=== PATIENT | male | born 1955 | race Caucasian/White ===

== ENCOUNTER 2016-10-14 00:32 | Inpatient (IN) | payer OTHER ==
[~2016-10-14] VITALS: Ht 172.7 cm; Wt 42.5 kg
[~2016-10-14 00:32] MED LIST: ACET325T21 PO; CALC200T10 PO; ENOX40SY4 SQ; HYDR-3240 PO; LEVE500T53 PO; PHEN100C PO
[2016-10-14] MEDS ORDERED: SODIUM CHLORIDE FLUSH 10ML SYR IVF ONE (01:00)
[2016-10-14] MEDS ORDERED: SODIUM CHLORIDE 0.9% 1,000ML IVBOLUS ONE (01:00)
[2016-10-14] MEDS ORDERED: VANCOMYCIN PER PHARMACY MC ONE (01:30)
[2016-10-14] MEDS ORDERED: ACETAMINOPHEN 650 MG SUPP PR ONE (01:30)
[2016-10-14] MEDS ORDERED: PIPERACILLIN/TAZO/PMX 4.5GM 100 ML IVPB ONE (01:30)
[2016-10-14] MEDS ORDERED: VANCOMYCIN PMX 1GM/200ML 200 ML IV ONE (01:30)
[2016-10-14] MEDS ORDERED: ACETAMINOPHEN 325 MG SUPP ONE ×2 (01:33→01:37)
[2016-10-14 01:41] LABS: ASPARTATE AMINO TRANSFERASE 61 U/L (15-37); BLOOD UREA NITROGEN 53 mg/dL (7-18)
[2016-10-14 01:49] LABS: IS PT STATUS REG ER OR PRE ER? YES
[2016-10-14 01:59] LABS: DAU SCREEN DISCLAIMER
[2016-10-14] MEDS ORDERED: LISI-167 PO (02:23)
[2016-10-14] MEDS ORDERED: RANI150T4 PO (02:23)
[2016-10-14] MEDS ORDERED: ASPI-496 PO (02:23)
[2016-10-14] MEDS ORDERED: CARV-39 PO (02:23)
[2016-10-14] MEDS ORDERED: CHOL100018 PO (02:23)
[2016-10-14] MEDS ORDERED: HEPARIN 25,000 UNITS/500ML PMX 500 ML ONE (03:28)
[2016-10-14] MEDS ORDERED: HEPARIN 5,000 UNITS/ML, 1ML ONE (03:28)
[2016-10-14] MEDS ORDERED: HEPARIN 5,000 UNITS/ML, 1ML IV PRN (03:30)
[2016-10-14] MEDS ORDERED: SODIUM CHLORIDE 0.9% 1,000 ML IV ONE (03:30)
[2016-10-14] MEDS ORDERED: HEPARIN 25,000 UNITS/500ML PMX 500 ML IV PRN (03:30)
[2016-10-14] MEDS ORDERED: HEPARIN 5,000 UNITS/ML, 1ML IV ONE (03:30)
[2016-10-14] MEDS ORDERED: MORPHINE SULFATE 4 MG/ML, 1ML ONE (04:15)
[2016-10-14] MEDS ORDERED: ONDANSETRON 2MG/ML, 2ML ONE (04:15)
[2016-10-14] MEDS: MORPHINE SULFATE 4 MG/ML, 1ML IVPush PRN ×2 (04:17→10:51)
[2016-10-14] MEDS ORDERED: ONDANSETRON 2MG/ML, 2ML IVPush ONE (04:30)
[2016-10-14 08:52] VITALS: BP 128/82
[2016-10-14] MEDS ORDERED: CYAN200014 PO (09:14)
[2016-10-14] MEDS ORDERED: ASPI325T80 PO (09:14)
[2016-10-14] MEDS ORDERED: CA C1TAB62 PO (09:14)
[2016-10-14] MEDS ORDERED: POLYETHYLENE GLYCOL 17 GM PACKET PO PRN (12:30)
[2016-10-14] MEDS ORDERED: hydrALAzine 20 MG/ML, 1ML IVPush PRN (12:30)
[2016-10-14] MEDS ORDERED: DOCUSATE 100 MG CAPSULE PO PRN (12:30)
[2016-10-14] MEDS ORDERED: ONDANSETRON 2MG/ML, 2ML IVPush PRN (12:30)
[2016-10-14] MEDS: CHOLECALCIFEROL 1,000 UNIT TABLET PO SCH (12:30)
[2016-10-14] MEDS ORDERED: BISACODYL 10 MG SUPP PR PRN (12:30)
[2016-10-14] MEDS: HEPARIN 5,000 UNITS/ML, 1ML SQ SCH ×2 (12:30→20:37)
[2016-10-14] MEDS ORDERED: ACETAMINOPHEN 325 MG TABLET PO PRN (12:30)
[2016-10-14] MEDS ORDERED: LABETALOL 5MG/ML, 20ML IVPush PRN (12:30)
[2016-10-14] MEDS ORDERED: POTASSIUM CHLORIDE 40 MEQ in SODIUM CHLORIDE 0.9% 500 ML IV ONE (13:00)
[2016-10-14 13:21] VITALS: BP 113/67
[2016-10-14] MEDS: FLUTICASONE/VILANTEROL 100-25MCG/INH INH SCH (13:39)
[2016-10-14 14:19] LABS: BLOOD UREA NITROGEN 36 mg/dL (7-18)
[2016-10-14] MEDS ORDERED: METOPROLOL 1 MG/ML, 5ML IVPush PRN (16:30)
[2016-10-14] MEDS: LEVETIRACETAM 500 MG in SODIUM CHLORIDE 0.9% 100 ML IV SCH (17:18)
[2016-10-14 17:51] VITALS: BP 123/84
[2016-10-14] MEDS: morphine SULFATE 10 MG/ML, 1ML IVPush PRN (17:58)
[2016-10-14 18:18] LABS: IS PT STATUS REG ER OR PRE ER? NO
[2016-10-14] MEDS: D5%-0.45% NACL 1,000 ML IV SCH (18:27)
[2016-10-14 18:29] VITALS: BP 121/76
[2016-10-14 20:30] VITALS: BP 113/77
[2016-10-14] MEDS ORDERED: LEVETIRACETAM 500 MG TABLET PO SCH (21:00)
[2016-10-14] MEDS ORDERED: FAMOTIDINE 20 MG TABLET PO SCH (21:00)
[2016-10-14] MEDS ORDERED: CARVEDILOL 25 MG TABLET PO SCH (21:00)
[2016-10-14 22:54] LABS: IS PT STATUS REG ER OR PRE ER? NO
[2016-10-15 02:00] VITALS: BP 117/71
[2016-10-15] MEDS: D5%-0.45% NACL 1,000 ML IV SCH (03:21)
[2016-10-15] MEDS: HEPARIN 5,000 UNITS/ML, 1ML SQ SCH ×3 (04:27→20:45)
[2016-10-15] MEDS: LEVETIRACETAM 500 MG in SODIUM CHLORIDE 0.9% 100 ML IV SCH ×2 (04:28→17:22)
[2016-10-15 04:47] LABS: BLOOD UREA NITROGEN 23 mg/dL (7-18)
[2016-10-15 04:50] LABS: ASPARTATE AMINO TRANSFERASE 25 U/L (15-37)
[2016-10-15 07:05] VITALS: BP 118/69
[2016-10-15] MEDS: FLUTICASONE/VILANTEROL 100-25MCG/INH INH SCH (07:47)
[2016-10-15] MEDS: CHOLECALCIFEROL 1,000 UNIT TABLET PO SCH (07:49)
[2016-10-15] MEDS ORDERED: VANCOMYCIN PER PHARMACY MC PRN (09:00)
[2016-10-15] MEDS ORDERED: PHARMACOKINETIC MONITORING MC PRN (09:30)
[2016-10-15] MEDS: PIPERACILLIN/TAZO/PMX 3.375GM 50 ML IV SCH ×3 (10:49→23:08)
[2016-10-15] MEDS: DEXTROSE 5% 1,000 ML IV SCH ×2 (10:49→23:13)
[2016-10-15] MEDS: VANCOMYCIN PMX 1GM/200ML 200 ML IV SCH (11:42)
[2016-10-15 13:04] VITALS: BP 115/69
[2016-10-15] MEDS ORDERED: DILTIAZEM 5 MG/ML, 5ML ONE (13:08)
[2016-10-15] MEDS ORDERED: DILTIAZEM 5 MG/ML, 5ML IVPush ONE (13:13)
[2016-10-15] MEDS: DILTIAZEM 125 MG in SODIUM CHLORIDE 0.9% 100 ML IV SCH ×2 (13:40→23:17)
[2016-10-15] MEDS ORDERED: ASPIRIN 325 MG TABLET EC PO SCH (14:30)
[2016-10-15] MEDS ORDERED: DIGOXIN 0.25 MG/ML, 2ML IVPush ONE (15:00)
[2016-10-15 15:58] LABS: BLOOD UREA NITROGEN 19 mg/dL (7-18)
[2016-10-15 20:33] VITALS: BP 102/65
[2016-10-15 21:50] LABS: BLOOD UREA NITROGEN 24 mg/dL (7-18)
[2016-10-16 02:18] VITALS: BP 99/64
[2016-10-16] MEDS: PIPERACILLIN/TAZO/PMX 3.375GM 50 ML IV SCH ×4 (04:34→22:25)
[2016-10-16] MEDS: HEPARIN 5,000 UNITS/ML, 1ML SQ SCH ×3 (04:36→19:54)
[2016-10-16] MEDS: LEVETIRACETAM 500 MG in SODIUM CHLORIDE 0.9% 100 ML IV SCH ×2 (05:25→16:58)
[2016-10-16] MEDS: ASPIRIN 325 MG TABLET PO SCH (05:26)
[2016-10-16 05:29] LABS: BLOOD UREA NITROGEN 22 mg/dL (7-18)
[2016-10-16 06:31] VITALS: BP 101/63
[2016-10-16] MEDS ORDERED: POTASSIUM CHLORIDE 10% 40 MEQ/30 ML UDC PO ONE (07:00)
[2016-10-16] MEDS ORDERED: POTASSIUM CHLORIDE 20 MEQ TAB.ER.PRT PO ONE (07:00)
[2016-10-16] MEDS ORDERED: POTASSIUM PHOSPHATE 44 MEQ in SODIUM CHLORIDE 0.9% 500 ML IV ONE (07:00)
[2016-10-16] MEDS: CHOLECALCIFEROL 1,000 UNIT TABLET PO SCH (07:51)
[2016-10-16] MEDS: FLUTICASONE/VILANTEROL 100-25MCG/INH INH SCH (07:52)
[2016-10-16] MEDS: DEXTROSE 5% 1,000 ML IV SCH (07:52)
[2016-10-16 09:25] LABS: BLOOD UREA NITROGEN 19 mg/dL (7-18)
[2016-10-16] MEDS: DIGOXIN 0.25 MG/ML, 2ML IVPush SCH (09:40)
[2016-10-16] MEDS: DILTIAZEM 125 MG in SODIUM CHLORIDE 0.9% 100 ML IV SCH ×2 (09:41→23:47)
[2016-10-16] MEDS: VANCOMYCIN PMX 1GM/200ML 200 ML IV SCH (10:32)
[2016-10-16 12:41] VITALS: BP 107/71
[2016-10-16] MEDS: THIAMINE 200 MG in SODIUM CHLORIDE 0.9% 50 ML IV SCH (13:53)
[2016-10-16 20:00] VITALS: BP 101/64
[2016-10-16] MEDS: OXYcodone IR 5MG TABLET PO PRN (22:29)
[2016-10-17 01:25] VITALS: BP 103/67
[2016-10-17] MEDS: PIPERACILLIN/TAZO/PMX 3.375GM 50 ML IV SCH ×4 (04:22→22:11)
[2016-10-17] MEDS: HEPARIN 5,000 UNITS/ML, 1ML SQ SCH ×3 (04:22→20:11)
[2016-10-17 04:51] LABS: BLOOD UREA NITROGEN 12 mg/dL (7-18)
[2016-10-17] MEDS: LEVETIRACETAM 500 MG in SODIUM CHLORIDE 0.9% 100 ML IV SCH ×2 (05:50→18:24)
[2016-10-17] MEDS: ASPIRIN 325 MG TABLET PO SCH (05:51)
[2016-10-17 07:21] VITALS: BP 103/66
[2016-10-17] MEDS: CHOLECALCIFEROL 1,000 UNIT TABLET PO SCH (08:11)
[2016-10-17] MEDS: DIGOXIN 0.25 MG/ML, 2ML IVPush SCH (08:11)
[2016-10-17] MEDS: OXYcodone IR 5MG TABLET PO PRN (08:11)
[2016-10-17] MEDS: FLUTICASONE/VILANTEROL 100-25MCG/INH INH SCH (08:12)
[2016-10-17] MEDS: THIAMINE 200 MG in SODIUM CHLORIDE 0.9% 50 ML IV SCH (11:28)
[2016-10-17] MEDS: VANCOMYCIN PMX 1GM/200ML 200 ML IV SCH (11:28)
[2016-10-17] MEDS ORDERED: POTASSIUM CHLORIDE 40 MEQ in SODIUM CHLORIDE 0.9% 100 ML IV ONE (11:30)
[2016-10-17] MEDS ORDERED: MAGNESIUM SULFATE PMX 4GM/100M 100 ML IV ONE (11:30)
[2016-10-17] MEDS ORDERED: POTASSIUM CHLORIDE 20 MEQ TAB.ER.PRT NG ONE (13:00)
[2016-10-17] MEDS ORDERED: DILTIAZEM 125 MG in SODIUM CHLORIDE 0.9% 100 ML IV SCH (13:30)
[2016-10-17 14:26] VITALS: BP 102/63
[2016-10-17] MEDS: DILTIAZEM 30 MG TABLET NG SCH ×2 (15:40→22:10)
[2016-10-17] MEDS ORDERED: POTASSIUM PHOSPHATE 44 MEQ in SODIUM CHLORIDE 0.9% 500 ML IV ONE (16:00)
[2016-10-17] MEDS ORDERED: DOCUSATE 100 MG CAPSULE PO PRN (19:30)
[2016-10-17] MEDS ORDERED: ACETAMINOPHEN 325 MG TABLET PO PRN (19:30)
[2016-10-17] MEDS ORDERED: BISACODYL 10 MG SUPP PR PRN (19:30)
[2016-10-17 19:55] VITALS: BP 105/62
[2016-10-17 22:00] VITALS: BP 110/65
[2016-10-18 03:17] VITALS: BP 120/64
[2016-10-18 04:15] VITALS: BP 116/72
[2016-10-18] MEDS: ASPIRIN 325 MG TABLET PO SCH (04:15)
[2016-10-18] MEDS: PIPERACILLIN/TAZO/PMX 3.375GM 50 ML IV SCH ×4 (04:15→22:17)
[2016-10-18] MEDS: DILTIAZEM 30 MG TABLET NG SCH ×4 (04:16→20:44)
[2016-10-18] MEDS: HEPARIN 5,000 UNITS/ML, 1ML SQ SCH ×3 (04:16→20:43)
[2016-10-18] MEDS ORDERED: VANCOMYCIN PMX 1GM/200ML 200 ML IV SCH (05:00)
[2016-10-18] MEDS: LEVETIRACETAM 500 MG in SODIUM CHLORIDE 0.9% 100 ML IV SCH ×2 (06:06→16:45)
[2016-10-18 06:16] LABS: BLOOD UREA NITROGEN 11 mg/dL (7-18)
[2016-10-18] MEDS: FLUTICASONE/VILANTEROL 100-25MCG/INH INH SCH (09:57)
[2016-10-18] MEDS: CHOLECALCIFEROL 1,000 UNIT TABLET PO SCH (09:57)
[2016-10-18] MEDS: DIGOXIN 0.25 MG/ML, 2ML IVPush SCH (09:57)
[2016-10-18 10:11] VITALS: BP 121/78
[2016-10-18] MEDS: THIAMINE 200 MG in SODIUM CHLORIDE 0.9% 50 ML IV SCH (11:42)
[2016-10-18] MEDS: morphine SULFATE 10 MG/ML, 1ML IVPush PRN (12:03)
[2016-10-18 13:46] VITALS: BP 130/66
[2016-10-18] MEDS: LACTOBACILLUS 1GM/ PACKET NG SCH ×2 (16:45→20:44)
[2016-10-18 19:35] VITALS: BP 110/63
[2016-10-18 20:44] VITALS: BP 125/77
[2016-10-19 03:28] VITALS: BP 115/72
[2016-10-19] MEDS: PIPERACILLIN/TAZO/PMX 3.375GM 50 ML IV SCH ×4 (03:29→22:24)
[2016-10-19] MEDS: DILTIAZEM 30 MG TABLET NG SCH ×4 (03:29→22:24)
[2016-10-19] MEDS: LEVETIRACETAM 500 MG in SODIUM CHLORIDE 0.9% 100 ML IV SCH ×2 (04:34→18:19)
[2016-10-19] MEDS: ASPIRIN 325 MG TABLET PO SCH (04:34)
[2016-10-19] MEDS: HEPARIN 5,000 UNITS/ML, 1ML SQ SCH ×3 (04:34→19:50)
[2016-10-19 06:10] LABS: BLOOD UREA NITROGEN 10 mg/dL (7-18)
[2016-10-19 07:04] VITALS: BP 122/75
[2016-10-19] MEDS ORDERED: REGADENOSON 0.4 MG/5 ML SYRINGE ONE (08:49)
[2016-10-19 10:33] VITALS: BP 129/74
[2016-10-19] MEDS: FLUTICASONE/VILANTEROL 100-25MCG/INH INH SCH (10:34)
[2016-10-19] MEDS: CHOLECALCIFEROL 1,000 UNIT TABLET PO SCH (10:35)
[2016-10-19] MEDS: DIGOXIN 0.25 MG/ML, 2ML IVPush SCH (10:35)
[2016-10-19] MEDS: LACTOBACILLUS 1GM/ PACKET NG SCH ×3 (10:35→22:24)
[2016-10-19] MEDS: THIAMINE 200 MG in SODIUM CHLORIDE 0.9% 50 ML IV SCH (12:17)
[2016-10-19] MEDS: OXYcodone IR 5MG TABLET PO PRN ×2 (12:22→13:21)
[2016-10-19 14:14] VITALS: BP 103/70
[2016-10-19 19:46] VITALS: BP 121/71
[2016-10-19 22:23] VITALS: BP 123/70
[2016-10-20 01:04] VITALS: BP 121/71
[2016-10-20] MEDS: OXYcodone IR 5MG TABLET PO PRN ×3 (01:37→18:31)
[2016-10-20] MEDS: HEPARIN 5,000 UNITS/ML, 1ML SQ SCH ×3 (04:19→22:28)
[2016-10-20] MEDS: PIPERACILLIN/TAZO/PMX 3.375GM 50 ML IV SCH ×2 (04:19→09:06)
[2016-10-20 04:20] VITALS: BP 113/72
[2016-10-20] MEDS: ASPIRIN 325 MG TABLET PO SCH (04:20)
[2016-10-20] MEDS: DILTIAZEM 30 MG TABLET NG SCH ×4 (04:20→22:28)
[2016-10-20 05:06] LABS: BLOOD UREA NITROGEN 15 mg/dL (7-18)
[2016-10-20] MEDS: LEVETIRACETAM 500 MG in SODIUM CHLORIDE 0.9% 100 ML IV SCH ×2 (05:43→16:16)
[2016-10-20 06:35] VITALS: BP 114/69
[2016-10-20] MEDS: DIGOXIN 0.25 MG/ML, 2ML IVPush SCH (09:06)
[2016-10-20] MEDS: FLUTICASONE/VILANTEROL 100-25MCG/INH INH SCH (09:06)
[2016-10-20] MEDS: LACTOBACILLUS 1GM/ PACKET NG SCH (09:07)
[2016-10-20] MEDS: CHOLECALCIFEROL 1,000 UNIT TABLET PO SCH (09:08)
[2016-10-20] MEDS: THIAMINE 200 MG in SODIUM CHLORIDE 0.9% 50 ML IV SCH (11:24)
[2016-10-20 14:24] VITALS: BP 129/72
[2016-10-20] MEDS: LACTOBACILLUS CHEW TABLET NG SCH ×2 (16:16→22:28)
[2016-10-20 18:50] VITALS: BP 122/71
[2016-10-20] MEDS: AMOXICILLIN/CLAV 875-125MG TABLET PO SCH (22:28)
[2016-10-21] MEDS: OXYcodone IR 5MG TABLET PO PRN ×3 (00:04→22:14)
[2016-10-21 01:50] VITALS: BP 118/70
[2016-10-21] MEDS: DILTIAZEM 30 MG TABLET NG SCH ×5 (03:22→22:14)
[2016-10-21] MEDS: LEVETIRACETAM 500 MG in SODIUM CHLORIDE 0.9% 100 ML IV SCH ×2 (04:18→17:17)
[2016-10-21] MEDS ORDERED: MORPHINE SULFATE 4 MG/ML, 1ML IVPush ONE (06:00)
[2016-10-21] MEDS: ASPIRIN 325 MG TABLET PO SCH (06:00)
[2016-10-21 06:44] VITALS: BP 110/72
[2016-10-21] MEDS: FLUTICASONE/VILANTEROL 100-25MCG/INH INH SCH (08:19)
[2016-10-21] MEDS: morphine SULFATE 10 MG/ML, 1ML IVPush PRN (08:20)
[2016-10-21] MEDS: DIGOXIN 0.25 MG/ML, 2ML IVPush SCH (09:00)
[2016-10-21] MEDS: AMOXICILLIN/CLAV 875-125MG TABLET PO SCH ×3 (09:00→22:14)
[2016-10-21] MEDS: LACTOBACILLUS CHEW TABLET NG SCH ×4 (09:00→22:14)
[2016-10-21] MEDS: CHOLECALCIFEROL 1,000 UNIT TABLET PO SCH (09:00)
[2016-10-21] MEDS: PANTOPRAZOLE 40 MG IV IVPush SCH ×2 (11:32→21:03)
[2016-10-21] MEDS: THIAMINE 200 MG in SODIUM CHLORIDE 0.9% 50 ML IV SCH (11:32)
[2016-10-21 14:00] VITALS: BP 111/71
[2016-10-21 20:07] VITALS: BP 135/76
[2016-10-22 01:20] VITALS: BP 109/70
[2016-10-22] MEDS: DILTIAZEM 30 MG TABLET NG SCH ×4 (03:45→22:02)
[2016-10-22] MEDS: LEVETIRACETAM 500 MG in SODIUM CHLORIDE 0.9% 100 ML IV SCH ×2 (05:15→18:24)
[2016-10-22 05:33] LABS: DIFF TOTAL CELLS COUNTED 100 CELL DIFF
[2016-10-22 05:39] LABS: ANISOCYTOSIS 1+; VERIFY COUNTS? YES
[2016-10-22 05:40] LABS: GIANT PLATELETS 1+; LARGE PLATELETS 1+; POLYCHROMASIA 1+
[2016-10-22] MEDS: OXYcodone IR 5MG TABLET PO PRN ×2 (07:27→21:07)
[2016-10-22 07:51] VITALS: BP 109/69
[2016-10-22] MEDS: CHOLECALCIFEROL 1,000 UNIT TABLET PO SCH (08:01)
[2016-10-22] MEDS: FLUTICASONE/VILANTEROL 100-25MCG/INH INH SCH (08:01)
[2016-10-22] MEDS: AMOXICILLIN/CLAV 875-125MG TABLET PO SCH ×2 (08:01→22:02)
[2016-10-22] MEDS: DIGOXIN 0.25 MG/ML, 2ML IVPush SCH (08:01)
[2016-10-22] MEDS: LACTOBACILLUS CHEW TABLET NG SCH ×3 (08:02→22:02)
[2016-10-22] MEDS: PANTOPRAZOLE 40 MG IV IVPush SCH ×2 (08:02→22:02)
[2016-10-22] MEDS: THIAMINE 200 MG in SODIUM CHLORIDE 0.9% 50 ML IV SCH (11:13)
[2016-10-22] MEDS ORDERED: FENTANYL PF 100 MCG/2ML ONE ×2 (12:49→17:04)
[2016-10-22] MEDS ORDERED: PROPOFOL 10 MG/ML, 20ML ONE (13:10)
[2016-10-22 14:30] VITALS: BP 118/74
[2016-10-22 19:13] VITALS: BP 121/70
[2016-10-23 02:22] VITALS: BP 114/69
[2016-10-23] MEDS: DILTIAZEM 30 MG TABLET NG SCH ×4 (03:34→20:02)
[2016-10-23 04:35] LABS: DIFF TOTAL CELLS COUNTED 100 CELL DIFF
[2016-10-23 04:39] LABS: ANISOCYTOSIS 1+
[2016-10-23 04:40] LABS: GIANT PLATELETS 1+; LARGE PLATELETS 1+; POLYCHROMASIA 1+
[2016-10-23 04:41] LABS: VERIFY COUNTS? YES
[2016-10-23] MEDS: LEVETIRACETAM 500 MG in SODIUM CHLORIDE 0.9% 100 ML IV SCH ×2 (05:22→16:43)
[2016-10-23] MEDS: OXYcodone IR 5MG TABLET PO PRN ×3 (05:25→20:01)
[2016-10-23 06:28] VITALS: BP 113/74
[2016-10-23] MEDS: FLUTICASONE/VILANTEROL 100-25MCG/INH INH SCH (08:15)
[2016-10-23] MEDS: LACTOBACILLUS CHEW TABLET NG SCH ×3 (08:16→20:01)
[2016-10-23] MEDS: CHOLECALCIFEROL 1,000 UNIT TABLET PO SCH (08:16)
[2016-10-23] MEDS: PANTOPRAZOLE 40 MG IV IVPush SCH ×2 (08:16→20:01)
[2016-10-23] MEDS: AMOXICILLIN/CLAV 875-125MG TABLET PO SCH ×2 (08:16→20:01)
[2016-10-23] MEDS: DIGOXIN 0.25 MG/ML, 2ML IVPush SCH (08:29)
[2016-10-23] MEDS: THIAMINE 200 MG in SODIUM CHLORIDE 0.9% 50 ML IV SCH (11:11)
[2016-10-23 12:45] VITALS: BP 115/72
[2016-10-23 13:50] VITALS: BP 112/69
[2016-10-23 20:28] VITALS: BP 105/68
[2016-10-24 02:50] VITALS: BP 106/68
[2016-10-24] MEDS: DILTIAZEM 30 MG TABLET NG SCH ×4 (03:13→20:46)
[2016-10-24] MEDS: LEVETIRACETAM 500 MG in SODIUM CHLORIDE 0.9% 100 ML IV SCH ×2 (05:10→17:59)
[2016-10-24 06:06] LABS: BLOOD UREA NITROGEN 15 mg/dL (7-18)
[2016-10-24] MEDS ORDERED: DIGOXIN 0.125 MG TABLET NG SCH (09:00)
[2016-10-24 09:18] VITALS: BP 115/74
[2016-10-24] MEDS: LACTOBACILLUS CHEW TABLET NG SCH ×3 (09:32→20:46)
[2016-10-24] MEDS: FLUTICASONE/VILANTEROL 100-25MCG/INH INH SCH (09:32)
[2016-10-24] MEDS: OXYcodone IR 5MG TABLET PO PRN ×2 (09:32→15:40)
[2016-10-24] MEDS: CHOLECALCIFEROL 1,000 UNIT TABLET PO SCH (09:32)
[2016-10-24] MEDS: AMOXICILLIN/CLAV 875-125MG TABLET PO SCH ×2 (09:32→20:46)
[2016-10-24] MEDS: PANTOPRAZOLE 40 MG IV IVPush SCH ×2 (09:39→20:46)
[2016-10-24] MEDS: THIAMINE 200 MG in SODIUM CHLORIDE 0.9% 50 ML IV SCH (11:17)
[2016-10-24 15:23] VITALS: BP 108/67
[2016-10-24 20:41] VITALS: BP 105/66
[2016-10-25 02:45] VITALS: BP 109/72
[2016-10-25] MEDS: OXYcodone IR 5MG TABLET PO PRN ×3 (02:51→17:57)
[2016-10-25] MEDS: DILTIAZEM 30 MG TABLET NG SCH ×4 (02:51→20:45)
[2016-10-25] MEDS: LEVETIRACETAM 500 MG in SODIUM CHLORIDE 0.9% 100 ML IV SCH (05:03)
[2016-10-25 08:35] VITALS: BP 111/68
[2016-10-25] MEDS: CHOLECALCIFEROL 1,000 UNIT TABLET PO SCH (08:55)
[2016-10-25] MEDS: PANTOPRAZOLE 40 MG IV IVPush SCH ×2 (08:55→20:46)
[2016-10-25] MEDS: FLUTICASONE/VILANTEROL 100-25MCG/INH INH SCH (08:55)
[2016-10-25] MEDS: LACTOBACILLUS CHEW TABLET NG SCH ×3 (08:55→20:46)
[2016-10-25] MEDS: AMOXICILLIN/CLAV 875-125MG TABLET PO SCH ×2 (08:55→20:46)
[2016-10-25] MEDS: THIAMINE 200 MG in SODIUM CHLORIDE 0.9% 50 ML IV SCH (11:53)
[2016-10-25 15:19] VITALS: BP 103/64
[2016-10-25] MEDS: LEVETIRACETAM 100 MG/ML ORAL SOL NG SCH ×2 (17:57→20:46)
[2016-10-25 18:55] VITALS: BP 115/72
[2016-10-26 01:57] VITALS: BP 120/77
[2016-10-26] MEDS: morphine SULFATE 10 MG/ML, 1ML IVPush PRN ×2 (02:28→21:37)
[2016-10-26] MEDS: DILTIAZEM 30 MG TABLET NG SCH ×4 (03:00→21:37)
[2016-10-26 08:16] VITALS: BP 113/71
[2016-10-26] MEDS: FLUTICASONE/VILANTEROL 100-25MCG/INH INH SCH (09:05)
[2016-10-26] MEDS: AMOXICILLIN/CLAV 875-125MG TABLET PO SCH ×2 (09:36→21:36)
[2016-10-26] MEDS: LACTOBACILLUS CHEW TABLET NG SCH ×3 (09:36→21:37)
[2016-10-26] MEDS: CHOLECALCIFEROL 1,000 UNIT TABLET PO SCH (09:36)
[2016-10-26] MEDS: LEVETIRACETAM 100 MG/ML ORAL SOL NG SCH ×2 (09:36→21:37)
[2016-10-26] MEDS: PANTOPRAZOLE 40 MG IV IVPush SCH ×2 (09:37→21:37)
[2016-10-26] MEDS ORDERED: KETAMINE 10 MG/ML, 20ML ONE (10:29)
[2016-10-26] MEDS ORDERED: PROPOFOL 10 MG/ML, 50ML ONE (10:29)
[2016-10-26] MEDS ORDERED: FENTANYL PF 100 MCG/2ML ONE ×2 (10:54→15:33)
[2016-10-26] MEDS ORDERED: MIDAZOLAM 1 MG/ML, 2ML ONE ×2 (10:54→15:33)
[2016-10-26] MEDS: THIAMINE 200 MG in SODIUM CHLORIDE 0.9% 50 ML IV SCH (11:26)
[2016-10-26] MEDS ORDERED: SODIUM CHLORIDE 0.9% 0 ML ONE (14:53)
[2016-10-26] MEDS ORDERED: CEFAZOLIN 1,000 MG ONE (14:53)
[2016-10-26 18:39] VITALS: BP 120/77
[2016-10-27] MEDS: DILTIAZEM 30 MG TABLET NG SCH ×4 (03:27→21:19)
[2016-10-27 03:29] VITALS: BP 120/74
[2016-10-27] MEDS: morphine SULFATE 10 MG/ML, 1ML IVPush PRN ×3 (05:51→21:18)
[2016-10-27 07:31] VITALS: BP 127/76
[2016-10-27] MEDS: FLUTICASONE/VILANTEROL 100-25MCG/INH INH SCH (10:52)
[2016-10-27] MEDS: CHOLECALCIFEROL 1,000 UNIT TABLET PO SCH (10:53)
[2016-10-27] MEDS: AMOXICILLIN/CLAV 875-125MG TABLET PO SCH ×2 (10:53→21:18)
[2016-10-27] MEDS: THIAMINE 200 MG in SODIUM CHLORIDE 0.9% 50 ML IV SCH (10:53)
[2016-10-27] MEDS: LACTOBACILLUS CHEW TABLET NG SCH ×3 (10:53→21:19)
[2016-10-27] MEDS: LEVETIRACETAM 100 MG/ML ORAL SOL NG SCH ×2 (10:53→21:18)
[2016-10-27] MEDS: PANTOPRAZOLE 40 MG IV IVPush SCH ×2 (10:53→22:45)
[2016-10-27 15:25] VITALS: BP 121/78
[2016-10-27 20:00] VITALS: BP 110/71
[2016-10-28 01:14] VITALS: BP 105/70
[2016-10-28 03:40] VITALS: BP 107/65
[2016-10-28] MEDS: DILTIAZEM 30 MG TABLET NG SCH ×3 (03:46→16:28)
[2016-10-28 06:53] VITALS: BP 108/75
[2016-10-28] MEDS: LACTOBACILLUS CHEW TABLET NG SCH ×2 (10:23→16:28)
[2016-10-28] MEDS: CHOLECALCIFEROL 1,000 UNIT TABLET PO SCH (10:23)
[2016-10-28] MEDS: AMOXICILLIN/CLAV 875-125MG TABLET PO SCH (10:24)
[2016-10-28] MEDS: FLUTICASONE/VILANTEROL 100-25MCG/INH INH SCH (10:24)
[2016-10-28] MEDS: PANTOPRAZOLE 40 MG IV IVPush SCH (10:24)
[2016-10-28] MEDS: LEVETIRACETAM 100 MG/ML ORAL SOL NG SCH (10:24)
[2016-10-28] MEDS ORDERED: ACID1TAB7 NG (11:27)
[2016-10-28] MEDS ORDERED: OMEP-110 PO (11:27)
[2016-10-28] MEDS ORDERED: ASPI325T80 PO (11:34)
[2016-10-28] MEDS: THIAMINE 200 MG in SODIUM CHLORIDE 0.9% 50 ML IV SCH (11:55)
[2016-10-28 13:23] VITALS: BP 111/66
[2016-10-31] MEDS ORDERED: LACT-90 PEG (02:49)
[2016-10-31] MEDS ORDERED: LISI-167 PO (02:49)
[2016-10-31] MEDS ORDERED: ASPI-515 PO (02:49)
[2016-10-31] MEDS ORDERED: ASPI325T80 PO (02:50)
== END 2016-10-28 18:29 | DRG 871 ==
LOC: ED 01:55 → EDIP 04:02 → 5SO 08:38 → 4EST 10-23 13:32
PROVIDERS: ADMIT Internal Medicine; ATTEND Internal Medicine
PROC: 0T9B70Z Drainage of Bladder with Drainage Device, Via Natural or Artificial Opening (ICD-10-PCS; 2016-10-14)
PROC: B5181ZA Fluoroscopy of Superior Vena Cava using Low Osmolar Contrast, Guidance (ICD-10-PCS; principal; 2016-10-16)
PROC: 02HV33Z Insertion of Infusion Device into Superior Vena Cava, Percutaneous Approach (ICD-10-PCS; 2016-10-16)
PROC: B548ZZA Ultrasonography of Superior Vena Cava, Guidance (ICD-10-PCS; 2016-10-16)
PROC: 0DJ08ZZ Inspection of Upper Intestinal Tract, Via Natural or Artificial Opening Endoscopic (ICD-10-PCS; 2016-10-22)
PROC: 0DH63UZ Insertion of Feeding Device into Stomach, Percutaneous Approach (ICD-10-PCS; 2016-10-26)
DX: A41.9 Sepsis, unspecified organism (principal); I21.4 Non-ST elevation (NSTEMI) myocardial infarction; G93.41 Metabolic encephalopathy; E43 Unspecified severe protein-calorie malnutrition; J69.0 Pneumonitis due to inhalation of food and vomit; N17.0 Acute kidney failure with tubular necrosis; K22.11 Ulcer of esophagus with bleeding; M62.82 Rhabdomyolysis; E87.0 Hyperosmolality and hypernatremia; E87.1 Hypo-osmolality and hyponatremia; R65.20 Severe sepsis without septic shock; E86.0 Dehydration; L89.159 Pressure ulcer of sacral region, unspecified stage; E83.39 Other disorders of phosphorus metabolism; E87.6 Hypokalemia; G40.909 Epilepsy, unspecified, not intractable, without status epilepticus; I25.2 Old myocardial infarction; I27.2 Other secondary pulmonary hypertension; I48.0 Paroxysmal atrial fibrillation; I50.9 Heart failure, unspecified; K21.9 Gastro-esophageal reflux disease without esophagitis; K22.4 Dyskinesia of esophagus; L89.90 Pressure ulcer of unspecified site, unspecified stage; Z87.891 Personal history of nicotine dependence; Z93.1 Gastrostomy status
CPT/HCPCS: 36415; 36569; 70450; 71010; 72125; 74000; 74230; 76700; 76937; 77001; 78452; 80048; 80053; 80061; 80202; 80307; 81001; 82140; 82550; 82962; 83036; 83605; 83735; 84100; 84145; 84439; 84443; 84484; 85014; 85018; 85025; 85520; 85610; 85730; 87040; 87324; 93005; 93017; 93306; 96361; 96365; 96375; B4087; J0690; J1644; J1953; J2250; J2405; J2543; J2704; J2785; J3010; J3370; J3411; J3480; J7070; A9502; C1751; C9113; C9898; J1160; J2270; J3475; J7030; J7040

== ENCOUNTER 2018-08-04 00:42 | Emergency (ER) | payer OTHER ==
[~2018-08-04] VITALS: Ht 157.5 cm; Wt 45.5 kg
[~2018-08-04 00:42] MED LIST changes: +ACET650S12 PR; +ACID1TAB7 NG; +ASPI-496 PO; +ASPI-515 PO; +ASPI325T80 PO; +CA C1TAB62 PO; -CALC200T10 PO; +CALC200T56 PO; +CARV-39 PO; +CARV3.1212 PO; +CHOL100012 PO; +CYAN200014 PO; +IPRA3AMP30 NPPB; +LACT-90 PEG; +LEVE500V6 PO; +LISI-167 PO; +Levetiracetam PEG; +METO25TA35 PO; +OMEP-110 PO; +PANT40VI IV; +PIPE3.373 IV; +RANI150T4 PO
[2018-08-04] MEDS ORDERED: RANI150T4 PO (00:54)
[2018-08-04] MEDS ORDERED: LEVE500T53 PO (00:54)
[2018-08-04] MEDS ORDERED: CARV25TA12 PO (00:54)
--- NOTE | 2018-08-04 00:55 | NUR ---
BIB [facility] FROM HOME FOR C/O N/V/EPIGASTRIC PAIN("HEARTBURN") X A FEW DAYS. PT. DENIES CP, SOB. IV ESTABLISHED EN ROUTE AND 500ML NS WAS ADMIN. 4MG PO ZOFRAN EN ROUTE ALSO. DR. JOHNSON WAS IN TO EVAL PT. AND DISCUSS POC. CONTINUOUS PULSE OX AND B/P MONITORS IN PLACE. WARM BLANKET PROVIDED. CALL LIGHT IN REACH. ALL SAFETY MEASURES OBSERVED.
[2018-08-04] MEDS ORDERED: FAMOTIDINE 20 MG/2 ML IVP ONE (01:00)
[2018-08-04] MEDS ORDERED: SODIUM CHLORIDE FLUSH 10ML SYR IVF ONE (01:00)
[2018-08-04] MEDS ORDERED: ONDANSETRON 2MG/ML, 2ML IVPush ONE (01:00)
[2018-08-04] MEDS ORDERED: PANTOPRAZOLE 40 MG IV IVPush SCH (01:00)
[2018-08-04] MEDS ORDERED: ONDANSETRON 2MG/ML, 2ML ONE (01:06)
[2018-08-04] MEDS ORDERED: PANTOPRAZOLE 40 MG IV ONE (01:06)
[2018-08-04] MEDS ORDERED: FAMOTIDINE 20 MG/2 ML ONE (01:06)
--- NOTE | 2018-08-04 01:32 | NUR ---
PT. HAD VOMITED ON SELF PRIOR TO SHIFT LEADER. GOWN CHANGED AND PT. CLEANED. PT. MEDICATED PER JUN. LABS HAVE BEEN DRAWN. CALL LIGHT IN REACH. ALL SAFETY MEASURES OBSERVED.
[2018-08-04 01:39] LABS: ALANINE AMINOTRANSFERASE 17 U/L (12-78); ALBUMIN 3.9 g/dL (3.4-5.0); ANION GAP 8 mmol/L (5-15); CALCIUM 10.1 mg/dL (8.5-10.1); CHLORIDE 102 mmol/L (98-107)
--- NOTE | 2018-08-04 01:41 | NUR ---
URINE SAMPLE REQUESTED FROM PT. PT. UNABLE TO PROVIDE AT THIS TIME. URINAL AT BS FOR PT. WHEN READY.
[2018-08-04 01:42] LABS: ALKALINE PHOSPHATASE 74 U/L (45-117); BILIRUBIN,TOTAL 0.6 mg/dL (0.2-1.0); TOTAL PROTEIN 8.3 g/dL (6.4-8.2)
[2018-08-04 01:46] LABS: BASOPHILS % (AUTO) 0 % (0-1); EOSINOPHILS # (AUTO) 0.02 x10^3/uL (0-0.4); EOSINOPHILS % (AUTO) 0 % (1-7); LYMPHOCYTES # (AUTO) 0.71 x10^3/uL (1-3.4); LYMPHOCYTES % (AUTO) 6 % (22-44); MD SCAN; MEAN CORPUSCULAR HEMOGLOBIN 31.2 pg (27.5-34.5); MEAN CORPUSCULAR HGB CONC 31.9 g/dL (33.2-36.2); MEAN CORPUSCULAR VOLUME 97.7 fL (81-97); MEAN PLATELET VOLUME 9.8 fL (7.4-10.4); MONOCYTES # (AUTO) 0.46 x10^3/uL (0.2-0.8); MONOCYTES % (AUTO) 4 % (2-9); NEUTROPHILS # (AUTO) 10.78 x10^3/uL (1.8-6.8); NEUTROPHILS % (AUTO) 90 % (42-75); PLATELET COUNT 210 x10^3/uL (130-400); RED BLOOD COUNT 5.75 x10^6/uL (4.38-5.82); RED CELL DISTRIBUTION WIDTH 13.4 % (9.4-14.8)
[2018-08-04] MEDS ORDERED: SODIUM CHLORIDE 0.9% 1,000ML IVBOLUS ONE (02:00)
--- NOTE | 2018-08-04 02:27 | NUR ---
IVF INFUSING PER ORDER. PT. REMAINS UNABLE TO PROVIDE UA AT THIS TIME; PT. DID ATTEMPT TO VOID VIA URINAL. PT. DENIES OTHER NEEDS AT THIS TIME. NO FURTHER EPISODES OF EMESIS NOTED. PT. REPORTS FEELING SOMEWHAT BETTER. CALL LIGHT IN REACH.
--- NOTE | 2018-08-04 03:07 | NUR ---
REQUESTED PT. TO ATTEMPT URINE SAMPLE AGAIN. PT. STATES "NO, I DON'T HAVE TO. I WILL LET YOU KNOW WHEN I DO." DR. JOHNSON AWARE.
--- NOTE | 2018-08-04 04:04 | NUR ---
PT. WAS UNABLE TO PROVIDE URINE SAMPLE. DR. JHONSON WAS IN TO DISCUSS PLAN FOR D/C WITH PT. PT. VERBALIZED UNDERSTANDING OF ALL D/C INSTRUCITONS. PT. ABLE TO FULLY DRESS SELF AND AMBULATE TO D/C DESK WITH STEADY GAIT. BISMARK. CAB VOUCHER PROVIDED FOR SAFE D/C HOME.
[2018-08-04 04:05] VITALS: BP 130/79
== END 2018-08-04 04:07 | disposition home or self-care (01) ==
LOC: ED 00:56
DX: E86.0 Dehydration (principal); R11.2 Nausea with vomiting, unspecified; I25.2 Old myocardial infarction
CPT/HCPCS: 36415; 80053; 83690; 85025; 96361; 96374; 96375; 99283; C9113; J2405; J3490; J7030